=== PATIENT | male | born 1955 | race Two or more races ===

== ENCOUNTER 2023-08-17 11:04 | Emergency (ER) | payer BC, MEDICARE ==
[~2023-08-17] VITALS: Ht 177.8 cm; Wt 145.9 kg
[2023-08-17 12:00] VITALS: BP 124/69; PULSE 100; RESP 19; TEMP 98.1; O2SAT 94
[2023-08-17] MEDS ORDERED: methylPREDNISolone SOD SUCC 125 MG/2 ML VL IM ONE (12:30)
[2023-08-17] MEDS ORDERED: cefTRIAXone SOD 1,000 MG VL IM ONE (12:30)
[2023-08-17] MEDS ORDERED: PENI500T2 PO (12:53)
[2023-08-17] MEDS ORDERED: LIDO2SOL26 MT (12:53)
== END 2023-08-17 12:59 | disposition home or self-care (01) ==
LOC: ER 11:04
DX: J03.00 Acute streptococcal tonsillitis, unspecified (principal)
CPT/HCPCS: 96372; 99284; J0696; J2930